=== PATIENT | male | born 1985 | race Caucasian/White ===

== ENCOUNTER 2016-11-27 13:10 | Emergency (ER) | payer SELFPAY ==
[~2016-11-27] VITALS: Ht 188 cm; Wt 84.8 kg
[2016-11-27 13:10] VITALS: BP 135/82
[2016-11-27] MEDS ORDERED: CLEO300C2 PO (13:30)
[2016-11-27] MEDS ORDERED: IBUP600T26 PO (13:30)
[2016-12-01] MEDS ORDERED: CIPR500T89 PO (12:42)
== END 2016-11-27 14:31 | disposition home or self-care (01) ==
LOC: M ED 13:48
DX: K65.1 Peritoneal abscess (principal); F17.210 Nicotine dependence, cigarettes, uncomplicated

== ENCOUNTER 2016-11-29 13:43 | Emergency (ER) | payer SELFPAY ==
[~2016-11-29] VITALS: Ht 188 cm; Wt 82.8 kg
[~2016-11-29 13:43] MED LIST: CLEO300C2 PO; IBUP-1022 PO
[2016-11-29] MEDS ORDERED: [UNRECOGNIZED DRUG - CODE] (13:56)
[2016-11-29] MEDS ORDERED: HYDROmorphone HCL 1 MG/ML SYRINGE (J1170) IM ONE (15:00)
[2016-11-29] MEDS ORDERED: ONDANSETRON 4 MG ORAL DISINTEGRATING TAB (S0181) PO ONE (15:00)
[2016-11-29] MEDS ORDERED: NORC1TAB4 PO (16:15)
[2016-11-29 16:35] VITALS: BP 108/57
== END 2016-11-29 16:35 | disposition home or self-care (01) ==
LOC: M ED 14:43
DX: K61.1 Rectal abscess (principal)
CPT/HCPCS: 10060; 87070; 87076; 87077; 87186; 87205; 96372; 99282; J1170

== ENCOUNTER 2016-12-01 11:40 | Emergency (ER) | payer SELFPAY ==
[~2016-12-01] VITALS: Ht 188 cm; Wt 83.9 kg
[~2016-12-01 11:40] MED LIST changes: +NORC1TAB4 PO; +[UNRECOGNIZED DRUG - CODE]
[2016-12-01] MEDS ORDERED: ZOFR4TAB3 PO (12:41)
[2016-12-01] MEDS ORDERED: CIPR-249 PO (12:42)
[2016-12-01] MEDS ORDERED: AMOX500C PO (12:42)
[2016-12-01] MEDS ORDERED: ONDANSETRON 4 MG ORAL DISINTEGRATING TAB (S0181) PO ONE (12:45)
[2016-12-01] MEDS ORDERED: AMOXICILLIN 500 MG CAP PO ONE (12:45)
[2016-12-01] MEDS ORDERED: CIPROFLOXACIN 500 MG TAB PO ONE (12:45)
[2016-12-01 12:55] VITALS: BP 119/69
== END 2016-12-01 13:01 | disposition home or self-care (01) ==
LOC: M ED 12:32
DX: L02.215 Cutaneous abscess of perineum (principal)